=== PATIENT | male | born 1975 | race Caucasian/White ===

== ENCOUNTER 2020-04-05 05:39 | Inpatient (IN) | payer OTHER ==
[~2020-04-05] VITALS: Ht 175.3 cm; Wt 85.3 kg
--- NOTE | 2020-04-05 05:45 | NUR ---
PT CAME TO THE ED C/O L SIDED SHARP SUDDEN ABDOMINAL PAIN X 45 MINS. -N/V/D. PT AAOX4, RESPIRATIONS EVEN AND UNLABORED ON RA W/ NAD NOTED. PT CONNECTED TO THE INSTRUCTIONAL COACH AND POX
--- NOTE | 2020-04-05 06:10 | NUR ---
DR DIEGO AT BEDSIDE
[2020-04-05] MEDS ORDERED: ONDANSETRON HCL/PF 4 MG/2 ML VIAL ONE (06:18)
[2020-04-05] MEDS ORDERED: HYDROMORPHONE 1 MG/1 ML DISP.SYRIN ONE (06:18)
--- NOTE | 2020-04-05 06:27 | NUR ---
PT TAKEN TO CT
[2020-04-05] MEDS ORDERED: HYDROMORPHONE INJ 2 MG/ML DISP.SYRIN IV ONE (06:30)
[2020-04-05] MEDS ORDERED: IV NS 0.9% 1,000 ML BAG IV ONE (06:30)
[2020-04-05] MEDS ORDERED: ONDANSETRON HCL/PF 4 MG/2 ML VIAL IVP ONE (06:30)
--- NOTE | 2020-04-05 06:40 | NUR ---
PT BACK FROM CT
[2020-04-05 06:45] LABS: APPEARANCE,URINE CLEAR (CLEAR); BILIRUBIN,URINE SMALL (NEGATIVE); BLOOD, URINE LARGE Ery/uL (NEGATIVE); COLOR,URINE YELLOW (YELLOW); KETONES,URINE NEGATIVE (NEGATIVE); LEUKOCYTE ESTERASE ,URINE NEGATIVE (NEGATIVE); NITRITE, URINE NEGATIVE (NEGATIVE); PROTEIN,URINE NEGATIVE (NEGATIVE); UGLUCOSE NEGATIVE (NEGATIVE)
[2020-04-05 06:57] LABS: BACTERIA,URINE Rare /HPF (None Seen); SQUAMOUS EPITHELIAL CELL,UR Rare /HPF (None Seen)
[2020-04-05 06:57] LABS: BASOPHILS # (AUTO) 0.1 /CMM (0.0-0.2); HEMATOCRIT 47 % (39-51); HEMOGLOBIN 15.9 g/dL (13.5-17.5); LYMPHOCYTES # (AUTO) 2.3 /CMM (0.8-4.8); LYMPHOCYTES % (AUTO) 39.3 % (20.0-44.0); MEAN CORPUSCULAR HGB CONC 34 g/dl (31.0-36.0); MEAN CORPUSCULAR VOLUME 92 fL (80-96); MONOCYTES # (AUTO) 0.4 /CMM (0.1-1.30); MONOCYTES % (AUTO) 7.6 % (2.0-12.0); NEUTROPHILS # (AUTO) 2.9 /CMM (1.8-8.9); NEUTROPHILS % (AUTO) 50.1 % (43.0-81.0); PLATELET COUNT (AUTO) 201 /CMM (150-450); RED BLOOD CELL COUNT(AUTO) 5.12 MIL/uL (4.5-6.0); WHITE BLOOD COUNT (AUTO) 5.8 K/uL (4.3-11.0)
[2020-04-05 06:58] LABS: CALCIUM OXALATE CRYSTALS,UR Few /HPF (None Seen); MUCUS,URINE Few /LPF (None Seen)
--- NOTE | 2020-04-05 07:03 | NUR ---
Dr. Brink speaking to dr. mariscal regarding possible surgery
--- NOTE | 2020-04-05 07:05 | NUR ---
called general road production manager GI dr. salazar for consult. Vm left.
--- NOTE | 2020-04-05 07:09 | NUR ---
IV LINE ESTABLISHED RAC 18 G
--- NOTE | 2020-04-05 07:19 | NUR ---
CLINICAL PACKET AND ADMISSION SHEET PROVIDED TO [employer]EARCH ANALYST FOR AUTH. AWARE PT IS NOT STABLE FOR TRANSFER.
--- NOTE | 2020-04-05 07:20 | NUR ---
REPORT RECEIVED FROM KHALIF GARCIA FOR HEATHER
[2020-04-05 07:34] LABS: CALCIUM, SERUM 8.7 mg/dL (8.5-10.1); CREATININE 1.1 mg/dL (0.6-1.3); POTASSIUM 3.3 mmol/L (3.5-5.1)
[2020-04-05 07:39] LABS: ALBUMIN 3.8 g/dL (3.4-5.0); BILIRUBIN,DIRECT 0.1 mg/dL (0.0-0.2); BILIRUBIN,TOTAL 0.7 mg/dL (0.2-1.0); TOTAL PROTEIN, SERUM 7.3 g/dL (6.4-8.2)
--- NOTE | 2020-04-05 08:37 | NUR ---
PANEL PAGED, AWAITING HOSPITALIST CALL BACK.
--- NOTE | 2020-04-05 08:44 | NUR ---
BELINDA VARGAS AT BEDSIDE
--- NOTE | 2020-04-05 08:45 | NUR ---
CALLED FOR MS BED.
[2020-04-05] MEDS: PANTOPRAZOLE 40 MG VIAL IV SCH (09:00)
--- NOTE | 2020-04-05 09:16 | NUR ---
REPORT GIVEN TO MS UNIT NURSE
[2020-04-05 09:35] VITALS: BP 115/85
[2020-04-05 09:40] VITALS: BP 115/85
[2020-04-05] MEDS ORDERED: ONDANSETRON HCL/PF 4 MG/2 ML VIAL IVP PRN (11:00)
[2020-04-05] MEDS ORDERED: MORPHINE SULFATE INJ 2 MG/ML DISP.SYRIN IV PRN (11:00)
[2020-04-05] MEDS ORDERED: MINERAL OIL 133 ML (PYXIS) 1 EA ENEMA RC ONE (12:30)
[2020-04-05] MEDS ORDERED: ANESTHESIA TRAY IN PYXIS 1 EA TRAY MC ONE (12:40)
--- NOTE | 2020-04-05 12:42 | NUR ---
Flees enema as ordered by dr. Fernandez administrated. Patient tolerated well
[2020-04-05] MEDS ORDERED: MIDAZOLAM HCL 2 MG/2ML VIAL ONE (12:44)
--- NOTE | 2020-04-05 13:00 | NUR ---
Patient picked up by OR nurses for colonoscopy
--- NOTE | 2020-04-05 14:10 | NUR ---
Patient back from OR. VS are stable , alert and oriented x3. Will monitor
[2020-04-05] MEDS: Potassium Chloride 10 MEQ in IV NS 0.9% 1,000 ML IV PRN (15:46)
[2020-04-05 16:00] VITALS: BP 122/78
--- NOTE | 2020-04-05 18:42 | NUR ---
Patient is resting in room.Awake alert and oriented x 4. Breathing unlabored on room air , saturation above 95%. IV fluid is running as ordered. Patient denies any pain or discomfort. Patient NPO status after midnight per dr. Yo in case of surgery. Will endorse to next shift nurse for HEATHER
--- NOTE | 2020-04-05 19:15 | NUR ---
RN OPENING NOTES Received patient, A/O x4, awake on bed resting. Denies any discomfort at this time. With peripheral IV line LAC #18 with [id number] @ 80ml/hr as ordered, infusing well, no s/sx of infiltration noted. For surgery consult in AM, to be kept on NPO at midnight. Pt verbalized understanding. Kept on bed clean, dry and comfortable. Will continue to monitor accordingly.
[2020-04-05 20:49] VITALS: BP 120/80
[2020-04-05 22:28] VITALS: BP 120/80
[2020-04-06] MEDS: Potassium Chloride 10 MEQ in IV NS 0.9% 1,000 ML IV PRN ×2 (04:00→10:05)
--- NOTE | 2020-04-06 06:19 | NUR ---
RN CLOSING NOTES Patient, A/O x4, awake on bed resting. Denies any discomfort at this time. With peripheral IV line LAC #18 with [id number] @ 80ml/hr as ordered, infusing well, no s/sx of infiltration noted. Kept on NPO after midnight for surgery consult this AM. Pt able to attend ADLs independently, turn and repositions on bed independently. All nursing needs attended. Medicated for pain, noted effective. Afebrile the whole, no new unusualities noted. Call light within easy reach at all times. Endorsed.
[2020-04-06 07:14] LABS: BASOPHILS % (AUTO) 0.6 % (0.0-2.0); EOSINOPHILS % (AUTO) 1.9 % (0.0-6.0); HEMATOCRIT 45 % (39-51); HEMOGLOBIN 15.3 g/dL (13.5-17.5); LYMPHOCYTES # (AUTO) 1.8 /CMM (0.8-4.8); LYMPHOCYTES % (AUTO) 24.6 % (20.0-44.0); MEAN CORPUSCULAR HGB CONC 34 g/dl (31.0-36.0); MEAN CORPUSCULAR VOLUME 92 fL (80-96); MONOCYTES # (AUTO) 0.6 /CMM (0.1-1.30); MONOCYTES % (AUTO) 8.3 % (2.0-12.0); NEUTROPHILS # (AUTO) 4.8 /CMM (1.8-8.9); NEUTROPHILS % (AUTO) 64.6 % (43.0-81.0); PLATELET COUNT (AUTO) 179 /CMM (150-450); RED BLOOD CELL COUNT(AUTO) 4.89 MIL/uL (4.5-6.0); WHITE BLOOD COUNT (AUTO) 7.4 K/uL (4.3-11.0)
[2020-04-06 07:25] LABS: ALBUMIN 3.2 g/dL (3.4-5.0); BILIRUBIN,TOTAL 0.8 mg/dL (0.2-1.0); MAGNESIUM 1.7 mg/dL (1.8-2.4); PHOSPHORUS 3.1 mg/dL (2.5-4.9); POTASSIUM 3.5 mmol/L (3.5-5.1); TOTAL PROTEIN, SERUM 6.4 g/dL (6.4-8.2)
[2020-04-06 08:00] VITALS: BP 118/87
--- NOTE | 2020-04-06 08:00 | NUR ---
RN NOTES RECEIVED PATIENT IN THE BED A/O X4, STABLE WAS COMPLAINING OF HEAVINESS AFTER COLONOSCOPY. IV ACCESS ON LEFT AC AREA INTACT,V/S STABLE, PATIENT AMBULATORY SELF CARE. CALL LIGHT WITHIN TO REACH, SEEN HOSPITALIST. GOAL IS SEE SURGEON Dr MARINA FOR PROCEDURE.
[2020-04-06] MEDS ORDERED: Magnesium 1GM/D5W 100ML PREMIX 100 ML IV SCH (09:30)
[2020-04-06] MEDS: PANTOPRAZOLE 40 MG VIAL IV SCH (09:36)
--- NOTE | 2020-04-06 10:30 | NUR ---
RN NOTES SEEN PATIENT BY SURGEON Dr MARINA AND EXPLAINED PATIENT BOUT PROCEDURE , OR OUTPATIENT FOLLOW UP. PER PATIENT, AND FAMILY WILL MAKE DECISION AND NOTIFY SURGEON.
--- NOTE | 2020-04-06 11:01 | NUR ---
RN NOTES NOTIFIED SURGEON PATIENT MAKE DECISION SURGERY NOTIFIED Dr MARINA, AND WAITING FOR RESPONDS.
--- NOTE | 2020-04-06 11:15 | NUR ---
RN NOTES RECEIVED CALL FROM SURGEON DR MARINA , AND GET TO ORDER FOR PREPARATION FOR SURGERY TOMORROW, MEDICATION, COVID -19, INR, TYPE AND SCREEN, TOP WATER ENEMA, CONSENT, EKG, MEDICAL CLEARANCE BY HOSPITALIST, NPO MIDNIGHT, CLEAR LIQUID TODAY, CHEST X-RAY. ORDER TAKEN AND CARRIED OUT.
[2020-04-06] MEDS: NEOMYCIN SULFATE (500MG) 500 MG TABLET PO SCH ×6 (13:01→18:31)
[2020-04-06] MEDS: MAGNESIUM CITRATE 296 ML BOTTLE PO SCH ×2 (13:02→16:35)
--- NOTE | 2020-04-06 13:15 | NUR ---
RN NOTES PATIENT SIGN CONSENT FORM, CLEAR LIQUID DIET, ADMINISTERED MEDICATION PRESCRIBED, PREPARING PATIENT TO THE SURGERY SCHEDULED PER SURGEON Dr MARINA TOMORROW. ALSO NOTIFIED HOSPITALIST BELINDA VARGAS ABOUT MEDICAL CLEARANCE BEFORE SURGERY. CALL LIGHT WITHIN TO REACH. SAFETY PRECAUTION MAINTAINED ALL THE TIME.
[2020-04-06] MEDS: ERYTHROMYCIN BASE (250 MG) 250 MG CAPSULE.DR PO SCH ×2 (14:05→17:10)
[2020-04-06 16:00] VITALS: BP 118/75
[2020-04-06 18:38] VITALS: BP 119/82
--- NOTE | 2020-04-06 18:38 | NUR ---
RN NOTES PATIENT FEEL NAUSEATED, ADMINISTERED ZOFRAN 4 MG/ML IV PUSH. PATIENT WAS COMPLAINING OF DIZZINESS. ALSO ADMINISTERED SCHEDULED MEDICATION, COVID-19 SPECIMEN TAKEN, TAKEN TO THE LAB. CALL LIGHT WITHIN TO REACH. V/S TAKEN BP 119/ 82, P58, T-98.4, O2-100 ROOM AIR. ENDORSE ONCOMING NURSE FOLLOW PLAN OF CARE.
--- NOTE | 2020-04-06 19:45 | NUR ---
MS RN OPENING NOTES RECEIVED PATIENT FROM MORNING SHIFT, ALERT AND ORIENTED X 4. VERBALLY RESPONSIVE AND ABLE TO FOLLOW DIRECTIONS. BREATHING REGULAR AND UNLABORED ON OXYGEN AT 2L/MIN VIA NASAL CANNULA. RIGHT UPPER ARM MIDLINE INTACT AND PATENT, INFUSING WELL WITH NO BLEEDING OR S/S OF INFILTRATION NOTED. DENIES SUICIDAL IDEATION OR PAIN/DISCOMFORT AT THIS TIME. ADVISED ON NOTHING BY MOUTH STARTING MIDNIGHT. BED LOW AND LOCKED ON SEMI FOWLERS POSITION. CALL LIGHT IN REACH. WILL CONTINUE TO MONITOR.
[2020-04-06 20:00] VITALS: BP 122/79
[2020-04-06 20:06] VITALS: BP 122/79
--- NOTE | 2020-04-06 22:00 | NUR ---
MS RN NOTES EXPLAINED TO THE PATIENT ABOUT 'S ORDER FOR TAP WATER ENEMA ADMINISTRATION, PATIENT REQUESTED IT TO BE GIVEN LATER AROUND 4AM OR 5AM.
[2020-04-07] MEDS: Potassium Chloride 10 MEQ in IV NS 0.9% 1,000 ML IV PRN ×2 (00:05→13:36)
--- NOTE | 2020-04-07 01:00 | NUR ---
MS RN NOTES REQUESTED FOR TAP WATER ENEMA ADMINISTRATION, FELT RESISTANCE AND WAS ONLY ABLE TO GIVE HALF OF THE SOLUTION.
--- NOTE | 2020-04-07 06:20 | NUR ---
MS RN CLOSING NOTES PATIENT IN BED ALERT AND ORIENTED X 4. AFEBRILE WITH NO S/S OF DISTRESS OBSERVED. RIGHT UPPER ARM MIDLINE PATENT AND INFUSING WELL. NO COMPLAINTS OF PAIN/DISCOMFORT REPORTED AT THIS TIME. MAINTAINED NOTHING BY MOUTH. BED LOW AND LOCKED ON SEMI FOWLERS POSITION. CALL LIGHT IN REACH. WILL ENDORSE TO MORNING SHIFT FOR HEATHER.
[2020-04-07 07:00] LABS: BASOPHILS # (AUTO) 0.1 /CMM (0.0-0.2); BASOPHILS % (AUTO) 0.9 % (0.0-2.0); EOSINOPHILS % (AUTO) 1.5 % (0.0-6.0); HEMATOCRIT 47 % (39-51); HEMOGLOBIN 15.4 g/dL (13.5-17.5); LYMPHOCYTES # (AUTO) 1.9 /CMM (0.8-4.8); LYMPHOCYTES % (AUTO) 29.6 % (20.0-44.0); MEAN CORPUSCULAR HGB CONC 33 g/dl (31.0-36.0); MEAN CORPUSCULAR VOLUME 93 fL (80-96); MONOCYTES # (AUTO) 0.5 /CMM (0.1-1.30); MONOCYTES % (AUTO) 7.6 % (2.0-12.0); NEUTROPHILS # (AUTO) 3.9 /CMM (1.8-8.9); NEUTROPHILS % (AUTO) 60.4 % (43.0-81.0); PLATELET COUNT (AUTO) 192 /CMM (150-450); RED BLOOD CELL COUNT(AUTO) 5.06 MIL/uL (4.5-6.0); WHITE BLOOD COUNT (AUTO) 6.5 K/uL (4.3-11.0)
[2020-04-07 07:07] LABS: CALCIUM, SERUM 8.1 mg/dL (8.5-10.1); CREATININE 0.8 mg/dL (0.6-1.3); MAGNESIUM 2.5 mg/dL (1.8-2.4); POTASSIUM 3.6 mmol/L (3.5-5.1)
[2020-04-07 08:00] VITALS: BP 115/76
--- NOTE | 2020-04-07 08:00 | NUR ---
RN NOTES RECEIVED PATIENT IN THE BED SLEEPING, NO ACUTE RESPIRATORY DISTRESS, AROUSE WHWN CALLED NAME OR TOUCHED, V/S STABLE, PATIENT NPO SCHEDULED SURGERY AT 14:00 TODAY. PATIENT ON O2-2LNC, REFUSED PAIN. INFUSING NS WITH [id number] 80 ML/HR ON RIGHT UA MIDLINE INTACT. CALL LIGHT WITHIN TO REACH, CONTINUED MONITORING.
[2020-04-07] MEDS ORDERED: FENTANYL PF 250MCG/5ML AMPUL ONE (14:40)
[2020-04-07] MEDS ORDERED: MIDAZOLAM HCL 2 MG/2ML VIAL ONE (14:40)
--- NOTE | 2020-04-07 14:40 | NUR ---
RN NOTES PATIENT RECORDS AND TAPE RECORDINGS ENGINEER AT THIS TIME TO THE SURGERY. PATIENT STABLE, V/S WNL.
[2020-04-07] MEDS ORDERED: HYDROMORPHONE INJ 2 MG/ML DISP.SYRIN ONE (14:41)
[2020-04-07] MEDS ORDERED: FAMOTIDINE/PF INJ 20 MG/2 ML VIAL IV ONE (14:41)
[2020-04-07] MEDS ORDERED: ROCURONIUM BROMIDE 50 MG/5 ML ONE (14:42)
[2020-04-07] MEDS ORDERED: METRONIDAZOLE 500MG/ NS 100ML 100 ML IV ONE (15:52)
[2020-04-07] MEDS ORDERED: BUPIVACAINE MPF 0.5% W/EPI INJ 30 ML VIAL ONE (16:33)
[2020-04-07] MEDS ORDERED: BUPIVACAINE MPF W/EPI 0.25% 30 ML VIAL ONE (16:33)
[2020-04-07 18:00] VITALS: BP_SYST 119; BP_SYST 126; BP_DIAS 77; BP_DIAS 83
--- NOTE | 2020-04-07 18:00 | NUR ---
RN NOTES PATIENT COME BACK FROM SURGERY AT THIS TIME. NO ACUTE RESPIRATORY DISTRESS, ON O2-2L NC,V/S TAKEN BP 126/77, R-16, P-73, O2-98 2LNC, ,T-98.1. F/C DRAINING LIGHT YELLOW OUTPUT. ABDOMINAL DRESSING INTACT, NO BLEEDING NOTED. NEW ORDERS TAKEN AND CARRIED OUT.
[2020-04-07 18:30] VITALS: BP 119/77
--- NOTE | 2020-04-07 18:50 | NUR ---
RN NOTES PATIENT IN THE BED SLEEPING, V/S WNL, CALLED CNRTAL SUPL FOR THIGH HIGH EFREN HOSE, DVT PUMP ON, EDUCATED PATIENT TO THE INCENTIVE SPIROMETER, CALL LIGHT WITHIN TO REACH. ENDORSED ONCOMING NURSE FOLLOW PLAN OF CARE.
--- NOTE | 2020-04-07 19:30 | NUR ---
MS RN OPENING NOTES RECEIVED PATIENT FROM MORNING SHIFT, ALERT AND ORIENTED X 4. VERBALLY RESPONSIVE AND ABLE TO FOLLOW DIRECTIONS. BREATHING REGULAR AND UNLABORED ON OXYGEN AT 2L/MIN. RIGHT UPPER ARM MIDLINE INTACT AND PATENT, INFUSING WELL WITH NO BLEEDING OR S/S OF INFILTRATION NOTED. S/P SIGMOID COLON RESECTION AND RIGID SIGMOIDOSCOPY WITH ABDOMINAL INCISION INTACT, WOUND DRESSING CLEAN AND DRY. DENIES SUICIDAL IDEATION AT THIS TIME. COMPLAINED OF 5/10 ABDOMINAL PAIN, NON-PHARMACOLOGICAL INTERVENTIONS PROVIDED. BURGESS CATH PATENT DRAINING CLEAR YELLOW URINE WITH MODERATE AMOUNT ON BAG. BED LOW AND LOCKED ON SEMI FOWLERS POSITION. CALL LIGHT IN REACH. WILL CONTINUE TO MONITOR.
[2020-04-07] MEDS: MORPHINE SULFATE INJ 2 MG/ML DISP.SYRIN IV PRN ×2 (19:37→21:52)
[2020-04-07 20:00] VITALS: BP 119/77
[2020-04-07 20:15] VITALS: BP 119/77
--- NOTE | 2020-04-07 22:00 | NUR ---
MS RN NOTES COMPLAINED OF 9/10 ABDOMINAL INCISION PAIN, MORPHINE 2MG GIVEN VIA IV PUSH. NON-PHARMACOLOGICAL INTERVENTIONS PROVIDED. VITAL SIGNS WNL. WILL CONTINUE TO MONITOR.
[2020-04-07] MEDS: IV D5/0.45 NACL W/20 MEQ KCL 1L IV PRN ×2 (22:15)
[2020-04-07] MEDS ORDERED: Potassium Chloride 20 MEQ in IV D5/0.45 NACL 1,000 ML IV PRN (22:30)
--- NOTE | 2020-04-07 22:30 | NUR ---
MS RN NOTES PATIENT STILL COMPLAINED OF PAIN 30MINS AFTER MORPHINE 2MG ADMINISTRATION. BELINDA STONE NOTIFIED AND ASKED FOR ORDER OF BREAKTHROUGH PAIN MEDICATION. INSTEAD HE ORDERED TO DC MORPHINE 2MG AND CHANGED TO MORPHINE 4MG IV EVERY 4HRS FOR SEVERE PAIN LEVEL OF 8-10, NOTED AND CARRIED OUT. PATIENT MADE AWARE.
[2020-04-07] MEDS: MORPHINE SULFATE INJ 4 MG/ML DISP.SYRIN IV PRN (23:15)
[2020-04-07] MEDS: ANCEF 1 GM/50 ML D5W IV SCH ×2 (23:15)
[2020-04-07] MEDS: METOCLOPRAMIDE HCL 10 MG/2 ML VIAL IV SCH (23:17)
[2020-04-07] MEDS: METRONIDAZOLE 500MG/ NS 100ML 500 MG in PREMIX 1 EA IV SCH (23:54)
[2020-04-08] MEDS: MORPHINE SULFATE INJ 4 MG/ML DISP.SYRIN IV PRN (02:42)
[2020-04-08] MEDS: METOCLOPRAMIDE HCL 10 MG/2 ML VIAL IV SCH ×3 (05:09→17:47)
[2020-04-08] MEDS ORDERED: HYDROMORPHONE 1 MG/1 ML DISP.SYRIN IV ONE ×2 (05:30→18:30)
--- NOTE | 2020-04-08 05:30 | NUR ---
MS GARCIA NOTES SEEN AND EXAMINED BY BELINDA STONE D/T SEVERE ABDOMINAL INCISION PAIN WITH ORDERS TO GIVE DILAUDID 1MG IV PUSH ONE TIME ONLY FOR 10/10 PAIN, NOTED AND CARRIED OUT. VITAL SIGNS WNL. WILL CONTINUE TO MONITOR.
[2020-04-08] MEDS: ANCEF 1 GM/50 ML D5W IV SCH ×4 (06:27→14:33)
--- NOTE | 2020-04-08 06:50 | NUR ---
MS RN CLOSING NOTES PATIENT IN BED ALERT AND ORIENTED X 4. AFEBRILE WITH NO S/S OF DISTRESS OBSERVED. RIGHT UPPER ARM MIDLINE PATENT AND INFUSING WELL. COMPLAINED OF 2/10 ABDOMINAL PAIN, NON-PHARMACOLOGICAL INTERVENTIONS PROVIDED. BED LOW AND LOCKED ON SEMI FOWLERS POSITION. CALL LIGHT IN REACH. WILL ENDORSE TO MORNING SHIFT FOR HEATHER.
[2020-04-08 07:29] LABS: BASOPHILS % (AUTO) 0.5 % (0.0-2.0); EOSINOPHILS % (AUTO) 0.2 % (0.0-6.0); HEMATOCRIT 46 % (39-51); HEMOGLOBIN 15.5 g/dL (13.5-17.5); LYMPHOCYTES % (AUTO) 12.8 % (20.0-44.0); MEAN CORPUSCULAR HGB CONC 34 g/dl (31.0-36.0); MEAN CORPUSCULAR VOLUME 92 fL (80-96); MONOCYTES # (AUTO) 0.7 /CMM (0.1-1.30); MONOCYTES % (AUTO) 8.9 % (2.0-12.0); NEUTROPHILS # (AUTO) 6.1 /CMM (1.8-8.9); NEUTROPHILS % (AUTO) 77.6 % (43.0-81.0); PLATELET COUNT (AUTO) 190 /CMM (150-450); WHITE BLOOD COUNT (AUTO) 7.9 K/uL (4.3-11.0)
[2020-04-08 07:42] LABS: CALCIUM, SERUM 8.1 mg/dL (8.5-10.1); CREATININE 0.9 mg/dL (0.6-1.3); POTASSIUM 3.9 mmol/L (3.5-5.1)
[2020-04-08 08:00] VITALS: BP 112/74
--- NOTE | 2020-04-08 08:01 | NUR ---
MS RN OPENING NOTES RECEIVED PATIENT IN BED, AWAKE, A/O X4. PATIENT IS ON ROOM AIR AT THIS MOMENT; BREATHING IS EVEN AND UNLABORED; NO SOB PRESENT AT THIS MOMENT. NO COMPLAIN OF PAIN. MARVA MIDLINE PLACE AND INTACT INFUSING D5 1/2 NS 20MEQ KCL. SAFETY PRECAUTIONS IN PLACE; BED IN LOW POSITION AND LOCKED, RAILS UP X2, CALL LIGHT WITHIN REACH. WILL CONTINUE TO MONITOR PATIENT.
[2020-04-08] MEDS: METRONIDAZOLE 500MG/ NS 100ML 500 MG in PREMIX 1 EA IV SCH ×2 (08:58→15:37)
[2020-04-08] MEDS: PANTOPRAZOLE 40 MG VIAL IV SCH (08:58)
--- NOTE | 2020-04-08 09:31 | NUR ---
MS RN NOTES BURGESS D/C AND URINAL PROVIDED
--- NOTE | 2020-04-08 13:12 | NUR ---
MS RN NOTES LAB CALLED: PATIENT TESTED NEGATIVE FOR COVID-19
[2020-04-08] MEDS: HYDROMORPHONE 1 MG/1 ML DISP.SYRIN IV PRN ×2 (13:52→21:05)
[2020-04-08] MEDS: IV D5/0.45 NACL W/20 MEQ KCL 1L IV PRN ×2 (15:37)
[2020-04-08 16:00] VITALS: BP 122/81
[2020-04-08] MEDS: ENOXAPARIN SODIUM 40 MG/0.4 ML DISP.SYRIN SQ SCH (16:26)
--- NOTE | 2020-04-08 19:10 | NUR ---
MS RN NOTES RECEIVED PT IN BED AWAKE AND ABLE TO MAKE NEEDS KNOWN. PT A/O X3. RESPIRATIONS EVEN AND UNLABORED WITH NO S/S OF ACUTE DISTRESS NOTED. PT NOTED WITH MARVA MIDLINE PLACE AND INTACT INFUSING D5 1/2 NS 20MEQ KCL. NO COMPLAINTS OF PAIN AT THIS TIME. SAFETY MEASURES IN PLACE WITH BED IN LOWEST LOCKED POSITION WITH SIDE RAILS UP X2. CALL LIGHT WITHIN REACH. WILL CONTINUE TO MONITOR.
--- NOTE | 2020-04-08 19:22 | NUR ---
MS RN CLOSING NOTES PATIENT IN BED, AWAKE, A/O X4. PATIENT IS ON OXYGEN THERAPY VIA NASAL CANNULA AT 2 LPM; BREATHING IS EVEN AND UNLABORED; NO SOB PRESENT AT THIS MOMENT. COMPLAINING OF PAIN; PRN PAIN MEDICATION GIVEN THROUGHOUT THE DAY. MARVA MIDLINE PLACE AND INTACT INFUSING D5 1/2 NS 20MEQ KCL. ALL NEEDS ATTENDED TO THROUGHOUT THE DAY. SAFETY PRECAUTIONS IN PLACE; BED IN LOW POSITION AND LOCKED, RAILS UP X2, CALL LIGHT WITHIN REACH. WILL ENDORSE TO DRILL SHARPENER NURSE.
[2020-04-08 20:00] VITALS: BP 130/87
[2020-04-09] MEDS: METOCLOPRAMIDE HCL 10 MG/2 ML VIAL IV SCH ×5 (00:24→23:50)
[2020-04-09] MEDS: HYDROMORPHONE 1 MG/1 ML DISP.SYRIN IV PRN ×4 (03:27→23:51)
[2020-04-09] MEDS: IV D5/0.45 NACL W/20 MEQ KCL 1L IV PRN ×4 (05:17→17:51)
--- NOTE | 2020-04-09 07:37 | NUR ---
MS RN NOTES PT IN BED AWAKE AND ABLE TO MAKE NEEDS KNOWN. PT A/O X3. RESPIRATIONS EVEN AND UNLABORED WITH NO S/S OF ACUTE DISTRESS NOTED THROUGHOUT SHIFT. PT NOTED WITH MARVA MIDLINE PLACE AND INTACT INFUSING D5 1/2 NS 20MEQ KCL. NO COMPLAINTS OF PAIN AT THIS TIME. SAFETY MEASURES IN PLACE WITH BED IN LOWEST LOCKED POSITION WITH SIDE RAILS UP X2. CALL LIGHT WITHIN REACH. WILL ENDORSE TO ONCOMING NURSE FOR HEATHER.
[2020-04-09 08:00] VITALS: BP 119/82
--- NOTE | 2020-04-09 08:00 | NUR ---
RN NOTES RECEIVED PATIENT IN THE BED A/O X3, ON O22L NC, PATIENT HAS NO ACUTE RESPIRATORY DISTRESS, WAS COMPLAINING OF PAIN MID ABDOMINAL REGION 6/10 PER PAIN SCALE, ADMINISTERED SCHEDULED MEDICATION, V/S WNL. ENCOURAGED PATIENT TO USE INCENTIVE SPIROMETER, AND AMBULATE. INFUSING NSWITH KCL 20 DIAN AT 80 ML/HR INTACT ON RIGHT UPPER MIDLINE. PATIENT USING URINAL. CALL LIGHT WITHIN TO REACH. CONTINUED MONITORING.
[2020-04-09 08:19] LABS: CALCIUM, SERUM 8.6 mg/dL (8.5-10.1); CREATININE 0.9 mg/dL (0.6-1.3); POTASSIUM 3.9 mmol/L (3.5-5.1)
[2020-04-09 08:25] LABS: BASOPHILS % (AUTO) 0.6 % (0.0-2.0); EOSINOPHILS % (AUTO) 1.1 % (0.0-6.0); HEMATOCRIT 45 % (39-51); HEMOGLOBIN 15.2 g/dL (13.5-17.5); LYMPHOCYTES # (AUTO) 0.9 /CMM (0.8-4.8); LYMPHOCYTES % (AUTO) 14.1 % (20.0-44.0); MEAN CORPUSCULAR HGB CONC 34 g/dl (31.0-36.0); MEAN CORPUSCULAR VOLUME 92 fL (80-96); MONOCYTES # (AUTO) 0.6 /CMM (0.1-1.30); MONOCYTES % (AUTO) 8.5 % (2.0-12.0); NEUTROPHILS % (AUTO) 75.7 % (43.0-81.0); PLATELET COUNT (AUTO) 191 /CMM (150-450); RED BLOOD CELL COUNT(AUTO) 4.93 MIL/uL (4.5-6.0); WHITE BLOOD COUNT (AUTO) 6.6 K/uL (4.3-11.0)
[2020-04-09] MEDS: PANTOPRAZOLE 40 MG VIAL IV SCH (09:48)
--- NOTE | 2020-04-09 09:49 | NUR ---
rn notes administered dilaudid1 mg/ml iv push for mid abdomen region 06/12 per patient request, v/s taken bp -119/82,p75, r-18.
[2020-04-09] MEDS: ENOXAPARIN SODIUM 40 MG/0.4 ML DISP.SYRIN SQ SCH (09:51)
--- NOTE | 2020-04-09 12:59 | NUR ---
RN NOTES SEEN PATIENT BY HOSPITALIST, NO NEW ORDERS. MEDICATION WERE ADMINISTERED FOR PAIN EFFECTIVE, PATIENT ALSO SEEN PT AMBULATED IN THE ROOM. CONTINUED MONITORING.
[2020-04-09 16:22] VITALS: BP 118/84
--- NOTE | 2020-04-09 17:39 | NUR ---
RN NOTES ADMINISTERED DILAUDID 1 MG /ML IV PUSH FOR MID ABDOMINAL REGION PAIN 04/11 PER PATIENT REQUEST, V/S TAKEN BP- 118/84,P-109,R-19. CONTINUED MONITORING.
--- NOTE | 2020-04-09 18:30 | NUR ---
rn notes medication were administered effective, resting in the bed. call light within to reach, infusing ns +kcl 100 ml/hr on right upper midline. call light within to reach. endorsed oncoming nurse follow plan of care.
[2020-04-09 20:00] VITALS: BP 119/89
[2020-04-10] MEDS: IV D5/0.45 NACL W/20 MEQ KCL 1L IV PRN ×4 (05:11→17:31)
[2020-04-10] MEDS: HYDROMORPHONE 1 MG/1 ML DISP.SYRIN IV PRN ×3 (06:06→18:24)
[2020-04-10] MEDS: METOCLOPRAMIDE HCL 10 MG/2 ML VIAL IV SCH ×4 (06:06→23:53)
--- NOTE | 2020-04-10 06:23 | NUR ---
MS RN NOTES AWAKE & RESPONSIVE. NOT IN ANY DISTRESS. NO SOB NOTED. DENIES ANY PAIN OR DISCOMFORT AT THIS TIME. WITH IVF INFUSING WELL. MONITORED ACCORDINGLY. CALL LIGHT WITHIN REACH. BED IN LOWEST POSITION. SR UP X 2 FOR SAFETY. WILL ENDORSE TO NEXT SHIFT.
[2020-04-10 06:48] LABS: BASOPHILS % (AUTO) 0.7 % (0.0-2.0); EOSINOPHILS % (AUTO) 2.8 % (0.0-6.0); HEMATOCRIT 43 % (39-51); HEMOGLOBIN 14.7 g/dL (13.5-17.5); LYMPHOCYTES # (AUTO) 1.1 /CMM (0.8-4.8); MEAN CORPUSCULAR HGB CONC 34 g/dl (31.0-36.0); MEAN CORPUSCULAR VOLUME 91 fL (80-96); MONOCYTES # (AUTO) 0.5 /CMM (0.1-1.30); NEUTROPHILS # (AUTO) 4.9 /CMM (1.8-8.9); NEUTROPHILS % (AUTO) 72.5 % (43.0-81.0); PLATELET COUNT (AUTO) 211 /CMM (150-450); RED BLOOD CELL COUNT(AUTO) 4.73 MIL/uL (4.5-6.0); WHITE BLOOD COUNT (AUTO) 6.8 K/uL (4.3-11.0)
[2020-04-10 07:07] LABS: CALCIUM, SERUM 8.8 mg/dL (8.5-10.1); CREATININE 0.8 mg/dL (0.6-1.3); POTASSIUM 3.8 mmol/L (3.5-5.1)
--- NOTE | 2020-04-10 07:30 | NUR ---
MS RN OPENING NOTES RECEIVED PT IN BED, ASLEEP, EASILY AROUSED, A/OX 3-4. PT TOLERATING RA, WITH NO ACUTE RESPIRATORY DISTRESS NOTED. PT STATED ABDOMINAL PAIN, DILAUDID WAS EFFECTIVE FROM 10 TO 6/10 PAIN SCALE. PT DENIES ANY CONCERNS OR QUESTIONS AT THIS TIME. IVF D5 1/2 NS WITH 20MEQS AT 100ML/HR TO MARVA 20G, FLUSHED WITH NS, INTACT AND OPERATIONAL. PT KEPT COMFORTABLE. CALL LIGHT KEPT WITHIN REACH. CALL LIGHT KEPT WITHIN REACH. PT'S BED IN LOWEST, LOCKED POSITION WITH SR X3.
[2020-04-10 08:00] VITALS: BP 105/59
[2020-04-10] MEDS: PANTOPRAZOLE 40 MG VIAL IV SCH (08:18)
[2020-04-10] MEDS: ENOXAPARIN SODIUM 40 MG/0.4 ML DISP.SYRIN SQ SCH (08:18)
--- NOTE | 2020-04-10 09:57 | NUR ---
MS RN NOTES SEEN AND EVALUATED BY DR. MARINA, ORDERS PLACED. MAY START FULL LIQUID DIET, AND TOLD PT KRUNAL GO HOME TOMORROW. PT AWARE. WILL CONTINUE TO MONITOR.
[2020-04-10 16:00] VITALS: BP 101/75
--- NOTE | 2020-04-10 18:43 | NUR ---
MS RN CLOSING NOTES PT REMAINS IN BED, ASLEEP, EASILY AROUSED, A/OX 3-4. PT TOLERATING RA, WITH NO ACUTE RESPIRATORY DISTRESS NOTED. PT STATED ABDOMINAL PAIN, DILAUDID PRN GIVEN ORDERED. IVF D5 1/2 NS WITH 20MEQS AT 100ML/HR TO MARVA 20G, FLUSHED WITH NS, INTACT AND OPERATIONAL. PT KEPT COMFORTABLE. ALL NEEDS AND CARE ATTENDED. CALL LIGHT KEPT WITHIN REACH. CALL LIGHT KEPT WITHIN REACH. PT'S BED IN LOWEST, LOCKED POSITION WITH SR X3. WILL ENDORSE TO INCOMING NIGHT NURSE FOR HEATHER.
--- NOTE | 2020-04-10 19:35 | NUR ---
aLERT AND ORIENTATED x3 STATED HE FEELS RELAXED D/T HE WAS JUST MEDICATED FOR PAIN AND IT WAS EFFECTIVE
[2020-04-10 20:00] VITALS: BP 114/76
[2020-04-11] MEDS: HYDROMORPHONE 1 MG/1 ML DISP.SYRIN IV PRN ×2 (01:42→10:07)
[2020-04-11] MEDS ORDERED: IV PREMIX D5 1/2NS + KCL 1,000 ML IV ONE (03:53)
--- NOTE | 2020-04-11 04:56 | NUR ---
SLEPT THRU THE NIGHT MEDICATED X1 FOR INCISIONAL PAIN AND EFFECTIVE. ABD DRESSING CDI ABD SOFT GUARDED BS VIA AUSCULTATION OCCASSIONAL PT STATES HE HAD A SMALL BM AND PASSING GAS.
[2020-04-11] MEDS: IV D5/0.45 NACL W/20 MEQ KCL 1L IV PRN ×2 (05:54)
[2020-04-11] MEDS: METOCLOPRAMIDE HCL 10 MG/2 ML VIAL IV SCH ×2 (05:54→12:00)
--- NOTE | 2020-04-11 07:37 | NUR ---
MS RN NOTES RECEIVED PT IN BED, ASLEEP, EASILY AROUSED, A/OX 3. PT TOLERATING RA, WITH NO ACUTE RESPIRATORY DISTRESS NOTED. PT DENIES ANY PAIN OR DISCOMFORT AT THIS TIME. PT DENIES ANY CONCERNS OR QUESTIONS WELL. IVF D51/2 NS WITH 20MEQS K+ AT 100ML/HR TO MARVA MIDLINE, INTACT AND FLUID INFUSING WELL. PT KEPT COMFORTABLE. CALL LIGHT KEPT WITHIN REACH. CALL LIGHT KEPT WITHIN REACH. PT'S BED IN LOWEST, LOCKED POSITION WITH SR X3. WILL CONTINUE PLAN OF CARE.
[2020-04-11 08:00] VITALS: BP 114/71
[2020-04-11] MEDS: PANTOPRAZOLE 40 MG VIAL IV SCH (08:27)
[2020-04-11] MEDS: ENOXAPARIN SODIUM 40 MG/0.4 ML DISP.SYRIN SQ SCH (08:41)
[2020-04-11] MEDS ORDERED: PANT40TA2 PO (11:58)
[2020-04-11] MEDS ORDERED: ONDA4TAB5 PO (11:58)
[2020-04-11] MEDS ORDERED: HYDR-4354 PO (11:58)
--- NOTE | 2020-04-11 13:27 | NUR ---
MS BI ARCHITECT NOTES PT AWAKE, A/O X3-4. PT TOLERATING RA, WITH NO ACUTE RESPIRATORY DISTRESS NOTED. PT DENIES ANY PAIN OR DISCOMFORT AT THE TIME OF DISCHARGE. PIV TO MARVA MIDLINE, REMOVED AND APPLIED DRESSING. PT REVIWED AND SIGNED DISCHARGE INSTRUCTIONS AND INVENTORY LIST. ALL BELONGINGS WITH THE PT. NEW PRESCRIPTIONS ELECTRONICALLY SENT TO THE PT'S PREFERRED PHARMACY, PT AWARE. PT'S SKIN ASSESSED, ABD INCISION WITH DRESSING, ONLY MD TO CHANGE. /SALAS AT BEDSIDE EARLIER AND MADE AWARE PT TO COME TO HIS OFFICE IN A WEEK FOR STAPLE REMOVAL. ALL NEEDS AND CARE ATTENDED. PT HAPPY WITH THE CARE PROVIDED. VS STABLE. CAR HIKER ESCORTED PT TO THE LOBBY VIA WHEELCHAIR. PT LEFT THE UNIT AT 1325. PT ACCOMPANIED BY A FRIEND VIA PRIVATE CAR. HOSPITALIST/NN AWARE OF DISCHARGE.
== END 2020-04-11 13:25 | disposition home or self-care (01) | DRG 231 ==
LOC: ER 05:41 → MEDSG2 09:11
PROVIDERS: ADMIT Nurse Practitioner Acute Care; ATTEND Nurse Practitioner Acute Care
DX: K56.2 Volvulus (principal); K65.9 Peritonitis, unspecified; E83.42 Hypomagnesemia; E87.6 Hypokalemia; E87.1 Hypo-osmolality and hyponatremia; Z87.442 Personal history of urinary calculi; R73.9 Hyperglycemia, unspecified
CPT/HCPCS: 36415; 71045-TC; 80048-TC; 80053-TC; 80061-TC; 80076-TC; 81000-TC; 83690-TC; 83735-TC; 84100-TC; 85025-TC; 85610-TC; 86850-TC; 87081-TC; 88307-TC; 93307-TC; 97116-TC; 97530-TC; A4216; A4217; C9113; G0378; J0330; J0690; J1170; J1650; J2250; J2270; J2405; J2704; J2710; J2765; J3010; J3475; J3480; J3490; J7030; J7060; U0003-CS